=== PATIENT | female | born 1950 | race Caucasian/White ===

== ENCOUNTER 2016-12-06 21:12 | Emergency (ER) ==
--- NOTE | 2016-12-06 21:50 | PROVIDER DOCUMENTATION ---
HPI-General Adult <Radha Mathews - Last Filed: 12/06/16 22:13> - General Source: patient - History of Present Illness -Gen Adult Nature of Presenting Problems: Pt. is 66 yof that presents with c/o Right hip pain after she was on a ladder last night around 0200 and fell off landing on her right hip. Pt. reports she has been unable to walk on it, but it began to hurt more and she decided to have it checked out. Pt. also reports her right elbow is hurting. Pt. denies any LOC or other injuries. Location of Pain/Injury: reports: pelvis (Right). denies: head, face, mouth, neck, chest, upper extremity, hand(s), abdomen, back, genitalia, lower extremity , feet, upper body, lower body, generalized Pain Radiation: reports: no radiation Quality of Pain: reports: aching. denies: burning, cramping, dull, fullness, indigestion, pressure, sharp, stabbing, tearing, throbbing, tightness Severity: reports: moderate. denies: mild, severe Onset/Duration: reports: abrupt, last night Timing: reports: still present. denies: improving, gone now, resolved prior to arrival, intermittent, constant, changing over time, getting worse Context/Activities at Onset: reports: moderate activity, recent trauma history. denies: recent emotional stress, recent physical stress, possible bad food, cold exposure, out of country travel Modifying Factors: improves with: immobilization. worse with: movement Associated Symptoms: reports: joint pain (Right hip), trouble walking. denies: anxiety, arm pain, back/neck pain, chest pain, constipation, cough, diaphoresis , diarrhea, dizziness, EENT symptoms, fatigue, fever/chills, genitourinary problems, headaches, heartburn, loss of appetite, malaise, muscle aches, sinus congestion/drainage, nausea, rash, seizure, shortness of breath, sensory/motor loss, pain with inspiration, swelling/mass in abdomen, syncope, vomiting, weakness Similar Symptoms Previously?: Yes Recently seen or treated by another doctor?: No <Renzo Roberts - Last Filed: 12/06/16 23:04> - General Chief Complaint: Fall Stated Complaint: hip pain secondary to fall Time Seen by Provider: 12/06/16 21:21 Allergies/Adverse Reactions: Patient Allergies Allergy/AdvReac Type Severity Reaction Status Date / Time No Known Allergies Allergy Verified 12/06/16 21:59 Home Medications: Home Medication List Medication Instructions Recorded Confirmed Last Taken Type Metformin [Glucophage] 850 mg PO TID 11/20/14 12/06/16 12/06/16 History Glimepiride 4 mg PO BID 02/16/15 12/06/16 12/06/16 History Thyroid,Pork [[place] Thyroid] 90 mg PO DAILY 02/16/15 12/06/16 12/06/16 History Hydrocodone/Acetaminophen [[place] 1 each PO PRN PRN 01/31/16 12/06/16 12/06/16 History 5-325 Tablet] Hydrocodone/APAP 5 mg/325 mg 1 each PO Q6H PRN PRN #15 tablet 12/06/16 Unknown Rx [[place]-5] Walker [Ultra-Light Rollator] 1 each MC DAILY #1 each 12/06/16 Unknown Rx Review of Systems - Adult - REVIEW OF SYSTEMS - ADULT Constitutional: reports: see HPI. denies: chills, fever, fatique Eyes: reports: see HPI. denies: discharge, blurred vision, double vision Ears, Nose, Mouth & Throat: reports: see HPI. denies: ear pain, hearing loss, sinus problem, nose pain, mouth/dental pain, throat pain, throat swelling Cardiovascular: reports: see HPI. denies: chest pain, edema, irregular heart rate, palpitations, syncope Respiratory: reports: see HPI. denies: cough, dyspnea on exertion, shortness of breath, wheezing Gastrointestinal: reports: see HPI. denies: abdominal pain, hematemesis, difficulty swallowing, nausea, vomiting Genitourinary: reports: see HPI. denies: dysuria, discharge, hematuria, hesitency, urgency Musculoskeletal: reports: see HPI, bone pain, joint pain (Right). denies: back pain, joint swelling, muscle aches, neck pain Integumentary: reports: see HPI. denies: hives, hair loss, itching, rash, skin thickening Neurological: reports: see HPI. denies: ataxia, dizziness/vertigo, numbness, paresthesia, seizure, tremors Psychiatric: reports: see HPI. denies: anxiety, depression, emotional problems , insomnia, panic attacks, suicidal thoughts <Renzo Roberts Mc - Last Filed: 12/06/16 23:04> Past History - Adult - PAST MEDICAL HISTORY-ADULT Review of Records: reports: Old Records Reviewed, Nursing Assessment Review, Medications Reviewed, Social history reviewed & non-contributory. Major Childhood Illnesses: reports: history unknown Cardiovascular: reports: CAD, HTN, AR Gastrointestinal: reports: cancer (colon cancer), GERD, ulcer Genitourinary: reports: kidney stones Endocrine/Immune: reports: Diabetes, thyroid disorder (hyper) Other Conditions: reports: denies history - PRIOR SURGERIES/PROCEDURES Surgical/Procedure History: reports: bowel surgery (partial colectomy) - IMMUNIZATION STATUS Childhood Immunizations: See Nurse Assessment Flu Vaccine: See Nurse Assessment - FAMILY HISTORY Family History: reviewed, not pertinent <Renzo Roberts Mc - Last Filed: 12/06/16 23:04> Physical Exam-General - PHYSICAL EXAM-ADULT Initial Vital Signs Reviewed: Yes - CONSTITUTIONAL General Appearance: alert, moderate distress, thin. negative: cachetic, obese, anxious, lethargic, slow to respond, obtunded, combative - EYES Eyes: PERRL/EOMI, pink conjunctivae. negative: conjuctival exudate, scleral icterus, subconjunctival hemorrhage - HEAD, EARS, NOSE, MOUTH & THROAT HENMT: normocephalic/atraumatic, moist mucous membranes. negative: angioedema, frontal tenderness, maxillary tenderness - NECK Neck: non-tender, full range of motion, supple, normal inspection. negative: lymphadenopathy, trachial deviation, thyromegaly - RESPIRATORY Respiratory: lungs clear, normal breath sounds. negative: crackles, rales, rhonchi, stridor, wheezing - CARDIOVASCULAR Cardiovascular: normal peripheral pulses, regular rate, rhythm, no edema, no JVD , no murmur. negative: extra beats, friction rub, irregularly irregular - CHEST (BREASTS) Chest/Breast: deferred - GASTROINTESTINAL (ABDOMEN) Abdominal Exam: normal bowel sounds, non tender, soft. negative: distended, guarding, rigid, rebound, tenderness, hernia, mass - GENITOURINARY Female Genitalia/Pelvic Exam: deferred Male Genitalia: deferred Rectal Exam: deferred Hemoccult Exam: deferred - LYMPHATIC Lymphatic: no adenopathy. negative: axilla node tender, cervical node tenderness - MUSCULOSKELETAL Back Exam: normal inspection, no CVA tenderness, no vertebral tenderness. negative: ecchymosis, swelling, vertebral tenderness Extremity: tenderness (Right hip and right elbwo). negative: inflammation, pedal edema, swelling Peripheral Pulses: radial (R): 2+, radial (L): 2+ - SKIN Integumentary: normal color, normal turgor, warm/dry, ecchymosis (Right elbow). negative: cyanosis, diaphoresis, erythema, jaundice, mottled, pallor, petechiae, purpura, rash, swelling, tenderness - NEUROLOGIC Neurologic: grossly normal, no motor/sensory deficits. negative: aphasia, facial droop, focal weakness, motor weakness, sensory deficit - PSYCHIATRIC Psych/Mental Status: normal mood/affect, normal thought content, normal thought process, oriented x 3. negative: anxious, paranoid, tearful <Renzo Roberts - Last Filed: 12/06/16 23:04> Progress - EKG 1 Time of EKG reading by physician:: 21:25 EKG Read and Signed by:: Zeyad Israel EKG Interpretation (*Must complete 3 of following elements*): Abnormal Rate: 76 Rhythm: NSR [place]: normal Comments: possible left atrial enlargement <Radha Mathews - Last Filed: 12/06/16 22:13> - PLAN OF CARE/RESULTS Progress/Plan/Lab Results: Discussed results and plan of care with patient. Patient agrees with plan and verbalizes understanding. Vital Signs Temp Pulse Resp BP Pulse Ox 12/06/16 21:14 98.5 F 77 16 126/55 98 No Known Allergies Allergy (Verified 12/06/16 21:59) Metformin [Glucophage] 850 mg PO TID 11/20/14 Glimepiride 4 mg PO BID 02/16/15 Thyroid,Pork [[place] Thyroid] 90 mg PO DAILY 02/16/15 Hydrocodone/Acetaminophen [[place] 5-325 Tablet] 1 each PO PRN PRN 01/31/16 Orders Category Date Time Status ELBOW COMPLETE RIGHT [RAD] Stat Exams 12/06/16 22:11 Taken HIP W/PELVIS BILAT 2 VIEWS [RAD] Stat Exams 12/06/16 21:18 Taken PELVIS W/O CONTRAST [CT] Stat Exams 12/06/16 21:48 Taken EKG [EKG] Stat Ther 12/06/16 21:22 Ordered - XRAY 1 XRAY: Bilateral XRAY Study: Pelvis XRAY Interpretation: Possible Pubic rami Fx ([place]) 2 XRAY: Right XRAY Study: Elbow XRAY Interpretation: No Fx Identified ([place]) - CT/MRI 1 CT Study: Pelvis CT Results: Right Inferior pubic Rami Fx ([place]) <Renzo Roberts - Last Filed: 12/06/16 23:04> Departure <Radha Mathews - Last Filed: 12/06/16 22:13> - Departure Time of Disposition Order: 23:00 Certified Medical Emergency: Emergent <Renzo Roberts - Last Filed: 12/06/16 23:04> - Departure DIAGNOSIS: Inferior pubic ramus fracture Qualifiers: Encounter type: initial encounter Fracture type: closed Laterality: right Qualified Code(s): S32.591A - Other specified fracture of right pubis, initial encounter for closed fracture Disposition: HOME 01 Condition: Stable Additional Instructions: Follow up with primary care physician Follow up with orthopedic physician Take medications as directed Return to ED for any concerns or worsening of symptoms ED Follow Up Instructions: You have been treated by a care provider in the Emergency Department. These instructions are being provided to you so you can have an understanding of how to care for yourself upon discharge. Upon discharge from the Emergency Department, you are responsible for making arrangements for follow-up care by a physician of your choice. Take all prescribed medications as directed. Return to the Emergency Department immediately for any new or worsening symptoms. You may call the Physician Referral phone number at [phone] to obtain a list of Physicians who are taking new patients. Prescriptions: Hydrocodone/APAP 5 mg/325 mg [[place]-5] 1 each PO Q6H PRN PRN #15 tablet PRN Reason: Pain Walker [Ultra-Light Rollator] 1 each MC DAILY #1 each Referrals: Maria Del Rosario Concepcion MD [Primary Care Provider] - Michael Santacruz MD [STAFF PHYSICIAN] - Attestation - Physician/ ROBBY Attestation Patient care was provided by Advanced Practice Provider:: Yes Advanced Practice Provider:: Renzo Roberts Advanced Practice Provider documentation review:: The Mid-level provider documentation, treatment plan and medical decision making was reviewed by the physician who agrees with all treatment and medical decision making by the MLP. <Renzo Roberts - Last Filed: 12/06/16 23:04> Physician Attestation
[2016-12-06] MEDS ORDERED: DILAUDID IV ONE (23:02)
[2016-12-06] MEDS ORDERED: ZOFRAN IV ONE (23:02)
[2016-12-06 23:17] VITALS: BP 123/60
--- NOTE | 2016-12-07 06:42 | Diag Imaging Result Document ---
PROCEDURE NAME: HIP W/PELVIS BILAT 2 VIEWS - 12/06/2016 PELVIS WITH BILATERAL HIPS, 5 VIEWS: FINDINGS: No fracture to either hip. Neither hip is dislocated. No widening of the pubic symphysis. Questionable lucent line through the inferior pubic ramus on the right. IMPRESSION: Questionable nondisplaced fracture through the right inferior pubic ramus.
--- NOTE | 2016-12-07 06:45 | Diag Imaging Result Document ---
PROCEDURE NAME: ELBOW COMPLETE RIGHT - 12/06/2016 RIGHT ELBOW THREE VIEWS: FINDINGS: No fracture. No dislocation. IMPRESSION: No acute bony injury.
--- NOTE | 2016-12-07 07:47 | Diag Imaging Result Document ---
PROCEDURE NAME: PELVIS W/O CONTRAST - 12/06/2016 CT OF THE BONY PELVIS: FINDINGS: There is generalized osteopenia. There are fractures of both sacral ala, which, in retrospect, were also present on 11/22/2016. This was not apparently present on 08/22/2016. There is a fracture of the right ischiopubic ramus and probably at the left ischiopubic ramus. Neither of these fractures were evident on the previous study of 11/22/2016. There is a minimal fracture of the posterior pubic ramus on the right. This was also not evident on the previous study. The femora appear to be intact bilaterally. IMPRESSION: 1. Sacral insufficiency fractures, which have occurred since 08/22/2016, but were present on 11/22/2016. 2. New pubic and ischiopubic ramus fractures on the right, with probable nondisplaced left ischiopubic ramus fracture. 3. All of these abnormalities are consistent with insufficiency fracture complex.
== END 2016-12-06 23:30 | disposition home or self-care (01) ==
LOC: EDBD → EDUNIT# → SUPCPDRO 21:12 → ED 21:12
DX: S32.591A Other specified fracture of right pubis, initial encounter for closed fracture (principal); S50.01XA Contusion of right elbow, initial encounter; M25.551 Pain in right hip; M25.521 Pain in right elbow; I25.10 Atherosclerotic heart disease of native coronary artery without angina pectoris; I10 Essential (primary) hypertension; I25.2 Old myocardial infarction; Z85.038 Personal history of other malignant neoplasm of large intestine; E11.9 Type 2 diabetes mellitus without complications; E05.90 Thyrotoxicosis, unspecified without thyrotoxic crisis or storm; Z90.49 Acquired absence of other specified parts of digestive tract; R94.31 Abnormal electrocardiogram [ECG] [EKG]; W11.XXXA Fall on and from ladder, initial encounter; Z79.899 Other long term (current) drug therapy
CPT/HCPCS: 72192; 73521; 93005; J1170; J2405

== ENCOUNTER 2018-10-14 16:12 | Observation (INO) ==
[2018-10-14 16:55] LABS: BASO# 0.09 X1000 (0.0-0.2); BASO% 1.8 % (0.0-0.8); EOS# 0.11 X1000 (0.0-0.7); EOS% 2.3 % (0.0-10.0); HEMOGLOBIN 6.3 g/dL (12.0-16.0); IMM GRAN# 0.03 X1000 (0.0-0.04); IMM GRAN% 0.6 % (0.0-0.5); LYMPH% 26.7 % (20.5-51.1); MCH 22.4 PG (27-31); MCHC 27.4 g/dL (33-37); MCV 81.9 FL (81-99); MONO# 0.48 X1000 (0.11-0.59); MONO% 9.9 % (1.7-9.3); MPV 9.5 FL (7.4-10.4); NEUT# 2.86 X1000 (1.4-6.5); NEUT% 58.7 % (42.2-75.2); PLT 412 X1000 (130-400); RBC 2.81 XMIL (4.2-5.4); RDW 15.6 % (11.5-14.5); WBC 4.87 X1000 (4.8-10.8)
[2018-10-14 16:57] LABS: INR 0.91
[2018-10-14 16:58] LABS: PTT 26.1 Seconds (22.3-41.8)
[2018-10-14 17:14] LABS: AGAP 18; ALB/GLOB RATIO 1.2; ALBUMIN 3.7 g/dL (3.5-5.0); ALKALINE PHOSPHATASE 89 U/L (32-104); BUN 14 mg/dL (8-22); CALCIUM 8.7 mg/dL (8.8-10.2); CHLORIDE 97 mmol/L (98-107); COSMO 281; CREATININE 1.4 mg/dL (0.5-0.9); ESTIMATED GFR 38; GLUCOSE 280 mg/dL (70-104); GOT 12 U/L (10-30); GPT 9 U/L (10-36); POTASSIUM 3.5 mmol/L (3.5-5.1); SODIUM 135 mmol/L (136-145); TCO2 20 mmol/L (25-35); TOTAL BILIRUBIN < 0.15 mg/dL (0.20-1.00); TOTAL PROTEIN 6.8 g/dL (6.3-8.3)
[2018-10-14] MEDS ORDERED: TYLENOL PO PRN (21:45)
[2018-10-14] MEDS ORDERED: SODIUM CHLORIDE 0.9% INJ PRN (21:45)
[2018-10-14] MEDS ORDERED: ZOFRAN IV PRN (21:45)
[2018-10-14] MEDS: HUMALOG SUBQ SCH (22:00)
[2018-10-14 22:18] LABS: HEMOGLOBIN A1C 9.6 % (4.8-6.0)
[2018-10-14 22:33] LABS: FERRITIN 14 ng/mL (13-150)
[2018-10-14 22:39] LABS: RETIC% 2.16 % (0.8-2.1); RETIC-HE 18.3 PG (28.2-36.6)
[2018-10-14] MEDS: PROTONIX IV SCH (22:44)
[2018-10-14] MEDS: NS 1,000 ML IV SCH (22:45)
[2018-10-14] MEDS: MORPHINE IV PRN (22:47)
[2018-10-15] MEDS ORDERED: BENADRYL IV ONE (01:22)
[2018-10-15] MEDS: MORPHINE IV PRN ×2 (01:50→08:22)
--- NOTE | 2018-10-15 06:46 | HISTORY AND PHYSICAL ---
PRIMARY CARE PHYSICIAN: Dr. Maria Del Rosario Concepcion ONCOLOGIST: Dr. Issa REASON FOR ADMISSION: 4-6 months' history of intermittent abdominal pain and hematochezia, and 1- month history of lightheadedness. HISTORY OF PRESENT ILLNESS: Ms. Felicia Booth is a 68-year-old lady with a past medical history of prior colon cancer status post right hemicolectomy, hypertension, type 2 diabetes, hypothyroidism, peripheral arterial disease and coronary artery disease. She reports that for the last 4-6 months she has been having intermittent hematochezia preceded on most occasions with lower abdominal cramping. She says they used to occur maybe once every 3-4 days, but over the last couple of months it has been almost daily. It is usually mixed with stool and not usually large amounts. No clots. No diarrhea associated with this blood in stool. She denies any weight loss, any loss of appetite. She says that it is usually preceded by lower abdominal cramping pain, not radiating, no specific aggravating or relieving factors. No melenic stools. No nausea or vomiting. No bleeding from any other orifice. Three days ago she underwent elective routine CT scan of the abdomen ordered by Dr. Issa. She said that after ingesting the oral contrast she started having multiple vomiting episodes, however, no hematochezia or coffee grounds. She said at that juncture that her bleeding became a little worse with increased frequency of lower abdominal cramps. The main reason why she did come in, however, was because she saw Dr. Concepcion today and had complained to him that she was feeling lightheaded and short of breath for the last one week. He did order some blood work and informed her that her hematocrit was low and referred her to the ER to be admitted. The patient was admitted with a hemoglobin of 6 and hematocrit 23, which are down from her last hematocrit in 2016 was 41. REVIEW OF SYSTEMS: Notable for chest pain that occurs with exertional dyspnea for the last 1 week. No extremity swelling, redness or pain. No PND or orthopnea. No cough, fever or chills. No new arthralgia or rash. No focal neurologic deficit. No polyuria or polydipsia. A 12 point review of systems was done and positive as per HPI. ALLERGIES: No known drug allergies. SOCIAL HISTORY: She does not smoke, drink or use drugs. , lives with her . PAST SURGICAL HISTORY: Right hemicolectomy performed by Dr. Donahue, general surgeon. She had a Mediport placed. OTHER PAST MEDICAL HISTORY: The patient has had cervical cancer treated with radiation and chemotherapy per patient. HOME MEDICATIONS: Amaryl 4 mg b.i.d., [place] 7.5 t.i.d. p.r.n., metformin 850 mg b.i.d., thyroid pork 19 mg daily. FAMILY HISTORY: Heart disease, breast cancer, ovarian cancer, and type 2 diabetes. LAB WORK: Notable for the following findings: White count 4000, hemoglobin 6, hematocrit 23, RDW 15, platelet count 412,00, normal differential except for 1.8% basophilia and 10% monocytosis. Potassium is 3.5, sodium is 131, BUN is 14, creatinine 1.4, glucose is 280, calcium 8.7. PT and PTT are normal. CT scan done 3 days ago showed decreased retroperitoneal adenopathy. PHYSICAL EXAMINATION: VITAL SIGNS: Blood pressure is 173/67, heart rate 73, temperature 98.3, respirations 19, 96% on room air. GENERAL: She is a pleasant, elderly woman who is in no acute distress. She has normal mood and affect. HEENT: Head is normocephalic, atraumatic. Eyes: [place], EOMI. She is anicteric, but severely pale. ENT and oropharynx exam within normal limits. No oropharyngeal exudates. No central cyanosis. NECK: Supple. No JVD, carotid bruits or thyromegaly. CHEST: Clear to auscultation with good air entry in both lung flores. CARDIOVASCULAR: First and second heart sounds are heard. No gallops, murmurs or rubs. Rhythm is regular. ABDOMEN: Protuberant, soft without tenderness. Bowel sounds normal. RECTAL: Exam deferred at this time. EXTREMITIES: The patient has surprisingly good pulse volume, regular, symmetrical distally in all extremities. No edema, clubbing or peripheral cyanosis. NEUROLOGICAL: No focal deficits. SKIN: Intact with no breakdown, lesions, or erythema. She is pallid. MUSCULAR: Exam is grossly normal. ASSESSMENT: At this time: 1. Hematochezia probably related from a lower gastrointestinal source. Differential includes diverticular bleed, ischemic colitis versus hopefully not a neoplastic process. 2. Hemorrhagic anemia secondary to #1. 3. Type 2 diabetes. 4. Hypertension. 5. Coronary artery disease. PLAN: The patient will be admitted to a medical floor. She is not actively bleeding or unstable. She will receive 2 units of packed red blood cells to achieve hematocrit at least greater than 28, in view of her underlying coronary artery disease. If this is less than that, will transfuse an extra unit. After achieving her goal with transfusion, will continue IV fluids and correct any electrolyte derangements. IV PPI will be started prophylactically. GI will be consulted, i.e. Dr. Martins who is her GI physician for endoscopic evaluation. CEA level was ordered, although this is nonspecific and if elevated it may confirm for underlying neoplasia. CT scan findings are a little reassuring, however, do not rule out our concern of neoplasia. Anemic workup was also ordered and needs to be followed. Diabetes will be controlled with sliding scale. Blood pressure controlled with p.o. medications. Dr. Issa was also consulted to go over the CT scan reports with the patient. cc: MD Carlton Lynn MD
[2018-10-15] MEDS: HUMALOG SUBQ SCH ×2 (06:57→12:47)
[2018-10-15 07:15] LABS: BASO# 0.09 X1000 (0.0-0.2); BASO% 1.9 % (0.0-0.8); EOS# 0.14 X1000 (0.0-0.7); HEMATOCRIT 29.4 % (37.0-47.0); HEMOGLOBIN 8.6 g/dL (12.0-16.0); IMM GRAN# 0.02 X1000 (0.0-0.04); IMM GRAN% 0.4 % (0.0-0.5); LYMPH# 1.28 X1000 (1.2-3.4); LYMPH% 27.4 % (20.5-51.1); MCH 24.6 PG (27-31); MCHC 29.3 g/dL (33-37); MONO# 0.42 X1000 (0.11-0.59); MPV 9.7 FL (7.4-10.4); NEUT# 2.72 X1000 (1.4-6.5); NEUT% 58.3 % (42.2-75.2); PLT 332 X1000 (130-400); RDW 15.8 % (11.5-14.5); WBC 4.67 X1000 (4.8-10.8)
[2018-10-15 07:16] LABS: ALB/GLOB RATIO 1.2; ALBUMIN 3.4 g/dL (3.5-5.0); CALCIUM 8.6 mg/dL (8.8-10.2); CREATININE 1.3 mg/dL (0.5-0.9); MAGNESIUM 1.7 mg/dL (1.5-2.7); POTASSIUM 3.7 mmol/L (3.5-5.1); TOTAL BILIRUBIN 0.33 mg/dL (0.20-1.00); TOTAL PROTEIN 6.3 g/dL (6.3-8.3)
[2018-10-15] MEDS: NS 1,000 ML IV SCH (10:31)
[2018-10-15 11:19] LABS: URINE SOURCE CLEAN CATCH
[2018-10-15 11:26] LABS: BILIRUBIN URINE NEGATIVE (NEGATIVE); BLOOD URINE TRACE (NEGATIVE); COLOR YELLOW; GLUCOSE URINE NEGATIVE (NEGATIVE); KETONE URINE NEGATIVE (NEGATIVE); LEUKOCYTES URINE MODERATE (NEGATIVE); NITRITE URINE NEGATIVE (NEGATIVE); PH URINE 6.5; PROTEIN URINE 50 mg/dL (NEGATIVE); SP GRAVITY URINE 1.009; TURBIDITY URINE CLEAR (CLEAR); UROBILINOGEN URINE NORMAL (NORMAL)
[2018-10-15 11:50] LABS: UR EPITHELIAL CELLS <10 /HPF (<10); URINE BACTERIA 1+ /HPF; URINE RBC <10 /HPF (<10); URINE WBC TNTC /HPF (<10)
[2018-10-15 11:58] LABS: URINE YEAST PRESENT
[2018-10-15] MEDS: PROTONIX IV SCH (13:27)
[2018-10-15 13:40] VITALS: BP 141/72
--- NOTE | 2018-10-15 15:09 | HEMO/ONC CONSULTATION ---
DATE: 10/15/2018 CHIEF COMPLAINT: Evaluate for malignancy. HISTORY OF PRESENT ILLNESS: Patient is a 68-year-old female who is well known to me. She has a history of T3 N1 colon adenocarcinoma status post adjuvant chemotherapy status post surgery and adjuvant chemotherapy, which was completed in 10/2015. She also has a history of cervical cancer for which she follows with Dr. Natarajan in [place]. She reports of having recurrent hematochezia. She has followed up with Dr. Burrell. She has required blood transfusion for this. She underwent CT of the abdomen pelvis. I have reviewed this. This revealed retroperitoneal slightly enlarged lymph node which compared to prior has decreased in size. This has not been evident on the PET scan. This is felt to be most likely benign. She is waiting to see Dr. Martins to discuss colonoscopy. She received blood transfusion this hospitalization. None. PAST MEDICAL HISTORY: Colon cancer, cervical cancer. PAST SURGICAL HISTORY: Right hemicolectomy. ALLERGIES: NKDA. HOME MEDICATIONS: Amaryl, [place], metformin, Synthroid. FAMILY HISTORY: Positive for heart disease, breast cancer, ovarian cancer and diabetes. REVIEW OF SYSTEMS: The patient reports of exertional shortness of breath, but denies chest pain or dizziness. She denies reflux symptoms. She denies any glandular enlargement in the neck, axilla or groin. She denies any abdominal pain. She denies dysuria, hematuria or frequency. All other review of systems are negative. PHYSICAL EXAMINATION: General: Well-developed well-nourished female in no acute distress. Vital Signs: Temperature 98.6, pulse 66, blood pressure 141/72. HEENT: Eyes: EOMI. PERRLA. Anicteric. Mucous membranes are moist. Cardiac: Regular rate and rhythm. Normal S1, S2. Chest: Clear to auscultation. Abdomen: Soft, nontender, without hepatosplenomegaly or masses. Extremities: No cyanosis, clubbing or edema. Neurologic: Alert and oriented x 3. No focal motor deficits. LABORATORY DATA: On admission: Hemoglobin and hematocrit 6.3 and 23. Today: White count 4.6, hemoglobin 8.6, hematocrit 29, platelets 332,000. BUN 14, creatinine 1.3, iron 12, ferritin 14, B12 283, folate 33. LFTs are normal. ASSESSMENT AND PLAN: 1. History of stage III colon cancer: She is status post chemotherapy about [address] scan does not reveal evidence of recurrent disease. 2. Retroperitoneal lymphadenopathy: She has a slightly enlarged lymph node in the retroperitoneum which has been present over the last several scans and in fact has decreased in size. This is most likely benign and reactive. Continue to simply observe. 3. History of cervical cancer: Following with Dr. Natarajan in [place]. 4. Hematochezia and anemia due to GI bleeding: Dr. Martins has been consulted. She has received blood transfusion. She is iron deficient. She is eager to go home. I will make arrangements to give her IV iron. 5. B12 deficiency: She is supposed to be taking oral B12 supplementation. This is apparently does not seem to be working very well. We will start her on B12 parenteral supplementation. cc: Carlton Issa MD
--- NOTE | 2018-10-16 04:38 | DISCHARGE SUMMARY ---
ADMISSION DATE: 10/14/2018 DISCHARGE DATE: 10/15/2018 DISPOSITION: Home. FOLLOW-UP: 1. Primary Care Physician Dr. Concepcion. 2. Dr. Martins. 3. Dr. Issa. CONSULTATION DURING ADMISSION: 1. GI was consulted. Patient was seen by Dr. Martins. 2. Hematology/Oncology was consulted. Patient was seen by Dr. Issa. INVASIVE INTERVENTION DURING ADMISSION: None. IMAGING STUDIES OF SIGNIFICANCE: None. ADMISSION DIAGNOSES: 1. Hematochezia. 2. Hemorrhagic anemia. 3. Type 2 diabetes. 4. History of coronary artery disease. DIAGNOSES AT TIME OF DISCHARGE: 1. Symptomatic anemia on presentation. Patient is status post 2 PRBC transfusion, feels a whole lot better. Symptoms improved. 2. Severe iron deficiency anemia secondary to chronic GI blood loss. The patient is currently asymptomatic. No more hematochezia. No melena stools. She has been evaluated today by her primary GI doctor Dr. Martins, and he recommends to follow up on outpatient basis for GI endoscopy workup. 3. Diabetes mellitus controlled, presenting A1c of 9.6. 4. Hypertension. 5. History of coronary artery disease currently asymptomatic. 6. CKD stage 3A DISCHARGE MEDICATIONS: 1. Metformin 500 b.i.d. 2. [place] Thyroid 90 mg daily. 3. Glimepiride 4 mg b.i.d. 4. Omeprazole 20 mg b.i.d. PRESENTING COMPLAINT: History of generalized weakness, lightheadedness and fatigue. HISTORY OF PRESENTING COMPLAINT: Ms. Booth is a 68-year-old female with previous history of remote colon cancer which is in remission, also cervical cancer, diabetes mellitus, hypothyroidism, and coronary artery disease, who comes in with about a 6 month history of intermittent hematochezia and melena stool. According to the patient, of late, she has been remarkably weak and easily fatigued, and lightheadedness upon orthostatism. The patient presented to the emergency department where she was evaluated, and was found to have hemoglobin of 6.3. She was subsequently admitted for further medical care. HOSPITAL COURSE: The patient was evaluated was transfused 2 PRBC. Hemoglobin and hematocrit improved from 6.3 to 8.6. She did not have any more hematochezia. She did not have any more melenic stool. No obvious sign of GI bleed. Iron studies were done which was consistent with iron deficiency with ferritin level of 14. The patient was seen today by GI Dr. Martins as well as Dr. Issa. I spoke directly with Dr. Issa who is okay with the patient going home, and having her follow up with Dr. Martins for GI workup since patient is not acutely showing signs of overt GI bleed. Dr. Issa also recommends that he will follow up with Ms. Booth, and make sure that she gets intermittent iron infusions. This afternoon Ms. Booth refers to be feeling a whole lot better, very energized and she wants to go home. I think from a medical standpoint she is clinically stable for discharge. She will follow up with Dr. Martins and Dr. Issa. Today, her vitals show blood pressure 141/72, pulse 63, respirations 18, and temperature 98.6 degrees. Physical exam is completely unremarkable. All the discharge instructions have been discussed with her. TIME SPENT: Time spent for discharge is 35 minutes. cc: MD Maria Del Rosario Quinones MD Dr. Alexander Naveen T. Lobo, MD MTDD
== END 2018-10-15 16:15 | disposition home or self-care (01) ==
LOC: ED 16:12 → 4N 21:19 → INTOOBSV 21:19 → SUATTDRO 21:19
PROVIDERS: ATTEND Internal Medicine
CPT/HCPCS: 36430; 71250; 74176; 80053; 81001; 82378; 82607; 82728; 82746; 82948; 83036; 83540; 83735; 85025; 85045; 85610; 85730; 86850; 86900; 86901; 86920; 87077; 87088; 99284; C9113; J1200; J2270; J7030; P9016; S0164; XXXXX